=== PATIENT | female | born 1955 | race American Indian/Alaskan Native ===

== ENCOUNTER 2017-07-26 19:58 | Emergency (ER) | payer OTHER ==
[2017-07-26 20:15] VITALS: BP 163/84
[2017-07-26] MEDS ORDERED: MOTRIN PO ONE (20:16)
[2017-07-26 20:36] LABS: Bacteria,Urine 1+ /HPF (Negative); Bilirubin,Urine NEG (Negative); Blood,Urine SM (Negative); Color,Urine Yellow (Yellow); Mucus,Urine FEW /HPF; Protein,Urine <15 mg/dL mg/dL (Negative); Urobilinogen,Urine < 2.0 mg/dL (<2.0)
--- NOTE | 2017-07-26 21:47 | Emergency Department Report ---
ED Back Pain/Injury HPI - General Chief Complaint: Back Pain/Injury Stated Complaint: BACK PAIN Time Seen by Provider: 07/26/17 21:33 Source: patient Limitations: No Limitations - History of Present Illness Initial Comments: 62-year-old -[place] female comes in for complaint of lower back pain for the last 5 days. Patient reports that she's had pain similar to this about 2 years ago but in the last 5 days it has progressively gotten worse. Patient reports that the pain radiates down her legs crosses over to her thigh and goes down to her lower extremity. Patient reports that the pain is 8 out of 10. Patient reports that his worse with repositioning lying sitting standing. Patient denies any dysuria no recent traumas no swelling no urinary or bowel incontinence. Patient reports it is been difficult to do most anything. She reports that she's been out of work for the last few days secondary to excruciating pain. Patient forced she's been taking Tylenol without much resolution. Patient has a primary care provider Dr. Ham Ross. Last time she seen him was 1 month ago. Patient denies any past medical history currently takes no medications on a daily basis and is allergic to penicillin. MD Complaint: back pain -: days(s) (5) Similar Symptoms Previously: Yes (2 years ago but not as bad) Radiation: groin, buttocks, left leg Severity: severe Severity scale (0 -10): 8 Quality: burning, aching Consistency: constant Improves With: none Worsens With: movement, supine, sitting upright, walking Associated Symptoms: difficulty walking. denies: weakness, chest pain, numbness , difficulty urinating, incontinence, fever/chills, constipation, headaches, abdominal pain, nausea/vomiting, rash Treatments Prior to Arrival: acetaminophen - Related Data Previous Rx's Medication Instructions Recorded Last Taken Type Ibuprofen [Motrin 800 MG tab] 800 mg PO Q8HR PRN #30 tablet 07/26/17 Unknown Rx Allergies Allergy/AdvReac Type Severity Reaction Status Date / Time Penicillins Allergy Anaphylaxis Verified 07/26/17 20:15 ED Review of Systems ROS: Stated complaint: BACK PAIN Other details as noted in HPI Constitutional: denies: chills, fever Eyes: denies: eye pain, eye discharge, vision change ENT: denies: ear pain, throat pain Respiratory: denies: cough, shortness of breath, wheezing Cardiovascular: denies: chest pain, palpitations Endocrine: no symptoms reported Gastrointestinal: denies: abdominal pain, nausea, diarrhea Genitourinary: denies: urgency, dysuria, discharge Musculoskeletal: back pain Skin: denies: rash, lesions Neurological: denies: headache, weakness, paresthesias Psychiatric: denies: anxiety, depression Hematological/Lymphatic: denies: easy bleeding, easy bruising ED Past Medical Hx - Past Medical History Previous Medical History?: No - Surgical History Past Surgical History?: No - Social History Smoking Status: Never Smoker Substance Use Type: None - Medications Home Medications: Home Medications Medication Instructions Recorded Confirmed Last Taken Type Ibuprofen [Motrin 800 MG tab] 800 mg PO Q8HR PRN #30 tablet 07/26/17 Unknown Rx ED Physical Exam - General Limitations: No Limitations General appearance: alert, in no apparent distress - Head Head exam: Present: atraumatic, normocephalic - Eye Eye exam: Present: normal appearance - ENT ENT exam: Present: mucous membranes moist - Neck Neck exam: Present: normal inspection, full ROM - Respiratory Respiratory exam: Present: normal lung sounds bilaterally. Absent: respiratory distress - Cardiovascular Cardiovascular Exam: Present: regular rate, normal rhythm. Absent: systolic murmur, diastolic murmur, rubs, gallop - Rectal Rectal exam: Present: deferred - Extremities Exam Extremities exam: Present: normal inspection, full ROM - Expanded Back Exam Expanded Back exam: Sciatic Notch Tenderness: Left, Right (left worse than right), Positive Straight Leg Raise: Left, Right (left worse than right) - Neurological Exam Neurological exam: Present: alert, oriented X3 - Psychiatric Psychiatric exam: Present: normal affect, normal mood, agitated (from pain). Absent: homicidal ideation, suicidal ideation - Skin Skin exam: Present: warm, dry, intact, normal color. Absent: rash ED Course Vital Signs 07/26/17 20:09 Temperature 97.9 F Pulse Rate 68 Respiratory 18 Rate Blood Pressure 163/84 O2 Sat by Pulse 98 Oximetry ED Medical Decision Making - Radiology Data FINDINGS: AP and lateral views of the lumbar spine were acquired as well as coned down lateral view of L5-S1. No fracture is seen in the lumbar spine. The intervertebral disc space heights appear preserved. IMPRESSION: NO FRACTURE IS SEEN IN THE LUMBAR SPINE Transcribed By: DICKSON Dictated By: JOSEPH ALMEIDA MD Electronically Authenticated By: JOSEPH ALMEIDA MD Signed Date/Time: 07/26/172246 DD/ 46 TD/TT: 07/26/172246 - Medical Decision Making Patient's been evaluated by this provider fast track. Urinalysis ordered ibuprofen given in triage x-ray of back is ordered waiting for results. Discussed with patient this appears to be sciatica which is treatment for involves nonsteroidal anti-inflammatory medications and stretches. Discussed the patient that she can take ibuprofen or diclofenac for pain she can follow up with her primary care provider and/or orthopedist. Critical care attestation.: If time is entered above; I have spent that time in minutes in the direct care of this critically ill patient, excluding procedure time. ED Disposition Clinical Impression: Sciatica of left side Disposition: DC-01 TO HOME OR SELFCARE Is pt being admited?: No Does the pt Need Aspirin: No Condition: Stable Additional Instructions: Please take pain medication as prescribed. Follow up with her primary care provider or orthopedist. If symptoms persist or gets worse. Prescriptions: Ibuprofen [Motrin 800 MG tab] 800 mg PO Q8HR PRN #30 tablet PRN Reason: Pain Referrals: PRIMARY CARE, [Primary Care Provider] - 3-5 Days Forms: Work/School Release Form(ED)
--- NOTE | 2017-07-26 22:51 | XRay Report ---
FINAL REPORT EXAM: XR L SPINE CLINICAL INDICATIONS: Back Pain FINDINGS: AP and lateral views of the lumbar spine were acquired as well as coned down lateral view of L5-S1. No fracture is seen in the lumbar spine. The intervertebral disc space heights appear preserved. IMPRESSION: NO FRACTURE IS SEEN IN THE LUMBAR SPINE
== END 2017-07-26 23:40 | disposition home or self-care (01) ==
LOC: ED 19:58
DX: M54.32 Sciatica, left side (principal); Z88.0 Allergy status to penicillin
CPT/HCPCS: 72100; 81001; 99284

== ENCOUNTER 2019-01-30 08:47 | Outpatient (CLI) | payer OTHER ==
[2019-01-30] MEDS ORDERED: PROVENTIL IH ONE (09:47)
== END 2019-01-30 08:48 | disposition home or self-care (01) ==
LOC: PF 08:47
PROVIDERS: ATTEND Internal Medicine
DX: J44.9 Chronic obstructive pulmonary disease, unspecified (principal)
CPT/HCPCS: 94060; 94640